=== PATIENT | female | born 1950 | race Caucasian/White ===

== ENCOUNTER 2017-08-14 11:49 | Emergency (ER) | payer OTHER ==
[~2017-08-14] VITALS: Ht 162.6 cm; Wt 75.3 kg
[2017-08-14] MEDS ORDERED: METFORMIN HCL750 MG (12:03)
[2017-08-14] MEDS ORDERED: RAMIPRIL2.5 MG (12:04)
[2017-08-14] MEDS ORDERED: SYNTHROID112 MCG (12:04)
[2017-08-14] MEDS ORDERED: ZITHROMAX500 MG PO (15:13)
[2017-08-14] MEDS ORDERED: PROMETH-CODEIN 65 ML PO (15:13)
[2017-08-14] MEDS ORDERED: MUCINEX DM ER1 EAC1 PO (15:13)
[2017-08-14] MEDS ORDERED: FLONASE ALLERG9.9 ML NASAL (15:13)
== END 2017-08-14 15:15 | disposition home or self-care (01) ==
LOC: ER 11:49
DX: J06.9 Acute upper respiratory infection, unspecified (principal); H66.93 Otitis media, unspecified, bilateral